=== PATIENT | female | born 1955 | race African-American/Black ===

== ENCOUNTER 2017-02-15 18:12 | Observation (INO) | payer BC ==
[~2017-02-15] VITALS: Ht 172.7 cm; Wt 94.6 kg
[~2017-02-15 18:12] MED LIST: ALBUTEROL SULF8.5 GM IH; ALBUTEROL17 GM IH; ASPIRIN325 MG PO; ASPIRIN81 M2 PO; ATARAX,VISTARIL25 MG PO; AVAPRO150 MG PO; GLIPIZIDE10 M1 PO; HYZAAR 50-121 TABLET PO; JANUMET 50/11 TABLET PO; LEVEMIR FL100 UNIT/1 SC; LISINOPRIL5 MG PO; NEURONTIN300 MG PO; PROTONIX40 MG PO; Protonix PO; SIMVASTATIN20 M1 PO; SPIRIVA1 INHALATI IH; ZOCOR20 MG PO
[2017-02-15 19:50] LABS: CHLORIDE 107 mEq/L (99-109); SODIUM 142 mEq/L (136-147)
[2017-02-15 19:52] LABS: GLUCOSE 128 mg/dL (70-99)
[2017-02-15 19:54] LABS: ANION GAP 8 MEQ/L (2-14); TOTAL BILIRUBIN 0.2 mg/dL (0.0-1.0)
[2017-02-15 19:56] LABS: ALKALINE PHOSPHATASE 98 IU/L (3-129); GFR ESTIMATE (CALCULATED) > 59 mL/min/
[2017-02-15 19:57] LABS: UREA NITROGEN (BUN) 12 mg/dL (9-23)
[2017-02-15 19:59] LABS: LIPASE 45 U/L (1.0-51.0)
[2017-02-15 21:24] LABS: EOSINOPHIL (%) 2.4 % (0-5); EOSINOPHIL COUNT 0.2 K/uL (0-0.3); HEMATOCRIT 36.8 % (36.0-46.0); IMMATURE GRANULOCYTE (%) 0.2 % (0.0-0.7); INSTRUMENT ABS NEUTROPHIL CT 3.9 K/uL; LYMPHOCYTE COUNT 3.6 K/uL (1.0-2.8); MCH 29.4 PG (29.0-34.0); MCHC 33.2 G/DL (30.0-36.0); MCV 88.7 FL (83-99); MEAN PLAT.VOLUME 8.7 uM^3 (9.5-12.4); MONOCYTE (%) 4.9 % (3-12); MONOCYTE COUNT 0.4 K/uL (0-0.8); NEUTROPHIL (%) 47.7 % (45-76); NEUTROPHIL COUNT 3.9 K/uL (1.8-6.4); PLATELET COUNT 327 K/uL (156-360); RBC DIS.WIDTH-CV 13.3 % (11.8-14.6); RBC DIS.WIDTH-SD 43.1 % (39-53); RED BLOOD COUNT 4.15 M/uL (3.80-5.20); WHITE BLOOD COUNT 8.2 K/uL (4.1-10.2)
[2017-02-15 22:24] LABS: TROP-I INTERPRETATION NEGATIVE; TROPONIN-I < 0.01 ng/mL (0.0-0.30)
[2017-02-15 22:49] LABS: ADD MIUA? YES; BILIRUBIN NEGATIVE; BLOOD SMALL; COLOR STRAW ((YELLOW)); GLUCOSE (STRIP) NEGATIVE; KETONES NEGATIVE; LEUKOCYTES NEGATIVE; NITRITE NEGATIVE; PROTEIN (STRIP) 100; UROBILINOGEN 0.2 MG/DL (0.2-1.0)
[2017-02-15 23:04] LABS: BACTERIA NONE SEEN /HPF; EPITHELIAL CELLS 1+ /HPF; MUCUS NONE SEEN /LPF; RED BLOOD CELLS NONE SEEN /HPF (0-5); UCUL ADDED? NO; WHITE BLOOD CELLS NONE SEEN /HPF (0-5)
[2017-02-15] MEDS ORDERED: AVAPRO300 MG PO (23:05)
[2017-02-15] MEDS ORDERED: LIPITOR80 MG PO (23:08)
[2017-02-15] MEDS ORDERED: AMBIEN5 MG PO (23:08)
[2017-02-15] MEDS ORDERED: PRILOSEC20 MG PO (23:09)
[2017-02-15] MEDS ORDERED: ALBUTEROL2.5 MG/3 M IH (23:09)
[2017-02-15] MEDS ORDERED: TESSALON PERLE100 MG PO (23:10)
[2017-02-15] MEDS ORDERED: VIBRAMYCIN100 MG PO (23:11)
[2017-02-16 00:45] VITALS: BP 146/70
[2017-02-16 03:27] LABS: HEMATOCRIT 32.7 % (36.0-46.0); MCH 28.5 PG (29.0-34.0); MCHC 32.4 G/DL (30.0-36.0); MCV 87.9 FL (83-99); MEAN PLAT.VOLUME 8.5 uM^3 (9.5-12.4); PLATELET COUNT 319 K/uL (156-360); RBC DIS.WIDTH-CV 13.3 % (11.8-14.6); RBC DIS.WIDTH-SD 43.1 % (39-53); RED BLOOD COUNT 3.72 M/uL (3.80-5.20); WHITE BLOOD COUNT 8.6 K/uL (4.1-10.2)
[2017-02-16 03:38] LABS: CHLORIDE 107 mEq/L (99-109); SODIUM 140 mEq/L (136-147)
[2017-02-16 03:41] LABS: GLUCOSE 173 mg/dL (70-99)
[2017-02-16 03:42] LABS: ANION GAP 8 MEQ/L (2-14)
[2017-02-16 03:44] LABS: ALKALINE PHOSPHATASE 92 IU/L (3-129); GFR ESTIMATE (CALCULATED) > 59 mL/min/
[2017-02-16 03:45] LABS: UREA NITROGEN (BUN) 16 mg/dL (9-23)
[2017-02-16 03:47] LABS: TOTAL BILIRUBIN 0.1 mg/dL (0.0-1.0)
[2017-02-16 03:49] LABS: TROP-I INTERPRETATION NEGATIVE; TROPONIN-I < 0.01 ng/mL (0.0-0.30)
[2017-02-16 03:50] VITALS: BP 136/65
[2017-02-16 07:10] VITALS: BP 128/69
[2017-02-16 08:20] LABS: POINT-OF-CARE METER ID UU14162513
== END 2017-02-16 09:49 | disposition left against medical advice (07) ==
LOC: EME 18:12 → EDOF 22:09 → ENRESERV 22:10 → 5WEST 02-16 00:05
PROVIDERS: Emergency Medicine; Internal Medicine
DX: R07.9 Chest pain, unspecified (principal); R10.9 Unspecified abdominal pain; E11.9 Type 2 diabetes mellitus without complications; I10 Essential (primary) hypertension; J44.9 Chronic obstructive pulmonary disease, unspecified; E78.5 Hyperlipidemia, unspecified; G47.33 Obstructive sleep apnea (adult) (pediatric); Z86.19 Personal history of other infectious and parasitic diseases; Z90.49 Acquired absence of other specified parts of digestive tract; Z90.710 Acquired absence of both cervix and uterus; Z83.3 Family history of diabetes mellitus; F17.200 Nicotine dependence, unspecified, uncomplicated; Z88.0 Allergy status to penicillin
CPT/HCPCS: 73030; 74176; 80053; 81003; 82948; 83690; 84484; 85025; 85027; 87086; 93005; 99202; 99281; 99285; G0378; J1650; J1885; J7030